=== PATIENT | female | born 1990 | race Caucasian/White ===

== ENCOUNTER 2021-03-30 14:50 | Outpatient (CLI) | payer OTHER, SELFPAY ==
[2021-03-30 15:46] LABS: Basophils Absolute Auto 0.01 K/mm3 (0.00-0.10); Basophils Percent Auto 0.1 % (0.0-1.0); Eosinophils Absolute Auto 0.11 K/mm3 (0.02-0.50); Eosinophils Percent Auto 1.4 % (1.0-6.0); Hemoglobin 11.6 g/dL (12.0-15.0); Immature Granulocyte Absolute 0.02 K/mm3 (0.00-0.00); Immature Granulocyte Percent A 0.3 % (0.0-0.0); Lymphocytes Absolute Auto 1.05 K/mm3 (1.10-4.50); Lymphocytes Percent Auto 13.5 % (18.0-42.0); Mean Corpuscular HGB Conc 34.1 g/dL (32.0-36.0); Mean Corpuscular Volume 90.9 fL (78.0-102.0); Mean Platelet Volume 9.7 fl (9.2-11.8); Monocytes Absolute Auto 0.56 K/mm3 (0.10-0.90); Monocytes Percent Auto 7.2 % (2.0-11.0); Neutrophils Percent Auto 77.5 % (50.0-70.0); Platelet Count Result 228 K/mm3 (150-420); Red Blood Count 3.74 M/mm3 (4.20-5.40); Red Cell Distribution Width 11.7 % (11.6-14.4); White Blood Count 7.8 K/mm3 (4.8-10.8)
[2021-03-30 15:50] LABS: Appearance Urine Clear (Clear); Bilirubin Urine Negative (Negative); Color Urine Light Yellow (Yellow); Glucose Urine UA Negative (Negative); Ketones Urine Negative (Negative); Leukocyte Esterase Ur Trace (Negative); Nitrate Urine Negative (Negative); Protein Urine Negative (Negative); Urobilinogen Urine 0.2 mg/dL (0.2-1.0)
[2021-03-30 16:13] LABS: Add Urine Microscopic? YES; Bacteria Urine Trace /hpf; Blood Urine Trace-lysed (Negative); RBC Urine 0-2 /hpf (0-2); Squamous Epithelial Cell Urine Few /hpf (Few); WBC Urine 0-3 /hpf (0-3)
[2021-03-30 16:40] LABS: Thyroid Stimulating Hormone 1.51 uIU/mL (0.36-3.74)
[2021-03-30 17:55] LABS: HIV 1 P24 AG Negative (Negative); HIV 1/2 AB Negative (Negative)
[2021-04-02 18:37] LABS: Hepatitis B Surface Antigen Nonreactive (Nonreactive)
[2021-04-02 19:22] LABS: Vitamin D 25 Hydroxy 24 ng/mL (30-100)
[2021-04-03 13:36] LABS: RPR Screen Non-Reactive (Non-Reactive)
[2021-04-03 16:20] LABS: Rubella IgG Antibody 2.48 Index
[2021-04-04 05:19] LABS: Hematocrit 36.3 % (35.0-45.0); Hemoglobin 11.5 g/dL (11.7-15.5); MCH 31.3 pg (27.0-33.0); MCV 98.6 fL (80.0-100.0); Red Blood Cell Count 3.68 Mill/uL (3.80-5.10)
[2021-04-10 16:27] LABS: CF Result NEGATIVE (NEGATIVE); Ethnicity CAUCASIAN
== END 2021-03-30 14:51 | disposition home or self-care (01) ==
LOC: CHSLAB 14:53
PROVIDERS: PCP Student in an Organized Health Care Education/Training Program; Visit Provider Student in an Organized Health Care Education/Training Program
DX: Z34.90 Encounter for supervision of normal pregnancy, unspecified, unspecified trimester (principal)
CPT/HCPCS: 36415; 81001; 81220; 81243; 82306; 83021; 84443; 85025; 86592; 86703; 86762; 86787; 86850; 86900; 86901; 87086

== ENCOUNTER 2021-06-08 11:40 | Outpatient (CLI) | payer OTHER, SELFPAY ==
[2021-06-08 13:15] LABS: Basophils Absolute Auto 0.01 K/mm3 (0.00-0.10); Basophils Percent Auto 0.1 % (0.0-1.0); Eosinophils Absolute Auto 0.05 K/mm3 (0.02-0.50); Eosinophils Percent Auto 0.6 % (1.0-6.0); Hematocrit 35.4 % (35.0-49.0); Hemoglobin 11.8 g/dL (12.0-15.0); Immature Granulocyte Absolute 0.03 K/mm3 (0.00-0.00); Immature Granulocyte Percent A 0.4 % (0.0-0.0); Lymphocytes Absolute Auto 1.07 K/mm3 (1.10-4.50); Mean Corpuscular HGB Conc 33.3 g/dL (32.0-36.0); Mean Corpuscular Hemoglobin 31.6 pg (27.0-31.0); Mean Corpuscular Volume 94.7 fL (78.0-102.0); Mean Platelet Volume 8.8 fl (9.2-11.8); Monocytes Absolute Auto 0.62 K/mm3 (0.10-0.90); Monocytes Percent Auto 7.5 % (2.0-11.0); Neutrophils Absolute Auto 6.5 K/mm3 (1.7-7.2); Neutrophils Percent Auto 78.4 % (50.0-70.0); Platelet Count Result 204 K/mm3 (150-420); Red Blood Count 3.74 M/mm3 (4.20-5.40); Red Cell Distribution Width 11.5 % (11.6-14.4); White Blood Count 8.3 K/mm3 (4.8-10.8)
[2021-06-08 13:36] LABS: Glucose 1 Hour PP 50gm Dose 112 mg/dL (70-130)
== END 2021-06-08 11:41 | disposition home or self-care (01) ==
LOC: CHSLAB 11:43
PROVIDERS: Visit Provider Student in an Organized Health Care Education/Training Program
DX: Z34.90 Encounter for supervision of normal pregnancy, unspecified, unspecified trimester (principal)
CPT/HCPCS: 36415; 82947; 85025

== ENCOUNTER 2021-07-18 13:35 | Outpatient (RCR) | payer OTHER, SELFPAY ==
[2021-07-18 15:24] LABS: Add Urine Microscopic? YES; Amorphous Sediment Urine Few; Appearance Urine Cloudy (Clear); Bacteria Urine 2+ /hpf; Bilirubin Urine Negative (Negative); Blood Urine Negative (Negative); Color Urine Yellow (Yellow); Glucose Urine UA Negative (Negative); Ketones Urine Negative (Negative); Leukocyte Esterase Ur 2+ LEU/UL (Negative); Nitrate Urine Negative (Negative); Protein Urine Negative (Negative); Specific Grav Ur 1.006 (1.001-1.035); Squamous Epithelial Cell Urine Occasional /hpf (Few); Urobilinogen Urine Negative mg/dL (<2.0)
[2021-07-18 15:35] VITALS: BP 108/70; PULSE 82
== END 2021-10-02 14:14 | disposition home or self-care (01) ==
LOC: ANHOBOP 13:35
PROVIDERS: Visit Provider Student in an Organized Health Care Education/Training Program
DX: O36.8330 Maternal care for abnormalities of the fetal heart rate or rhythm, third trimester, not applicable or unspecified (principal); Z3A.32 32 weeks gestation of pregnancy
CPT/HCPCS: 59025; 81001

== ENCOUNTER 2021-07-19 11:43 | Outpatient (CLI) | payer OTHER, SELFPAY ==
[2021-07-19 11:58] LABS: Basophils Percent Auto 0.1 % (0.2-1.2); Eosinophils Percent Auto 0.4 % (0-4.4); Hematocrit 33.2 % (37.0-47.0); Hemoglobin 11.1 g/dL (12.0-15.0); Immature Granulocyte Absolute 0.03 K/mm3 (0.00-0.031); Immature Granulocyte Percent A 0.4 % (0-0.5); Lymphocytes Absolute Auto 1.13 K/mm3 (0.9-3.2); Lymphocytes Percent Auto 13.4 % (18.3-44.2); Mean Corpuscular HGB Conc 33.4 g/dl (32-36); Mean Corpuscular Hemoglobin 30.7 pg (26-34); Mean Corpuscular Volume 91.7 fl (80-100); Mean Platelet Volume 9.3 fl (7.4-10.4); Monocytes Absolute Auto 0.6 K/mm3 (0.1-0.6); Monocytes Percent Auto 6.7 % (2.6-8.5); Neutrophils Absolute Auto 6.7 K/mm3 (1.3-6.7); Platelet Count Result 206 k/mm3 (150-375); Red Blood Count 3.62 M/mm3 (4.2-5.4); Red Cell Distribution Width 11.6 % (11.5-14.5); White Blood Count 8.5 K/mm3 (4.5-10.0)
[2021-07-19 12:52] LABS: HIV 1/2 Ab P24 Ag Result Negative (Negative)
[2021-07-19 15:39] LABS: Rapid Plasma Reagin Non-Reactive (NonReactive)
== END 2021-07-19 11:44 | disposition home or self-care (01) ==
LOC: ANHLAB 11:44
PROVIDERS: Visit Provider Student in an Organized Health Care Education/Training Program
DX: Z34.03 Encounter for supervision of normal first pregnancy, third trimester (principal); Z3A.00 Weeks of gestation of pregnancy not specified
CPT/HCPCS: 36415; 85025; 86592; 86703; G0432

== ENCOUNTER 2021-09-02 15:32 | Inpatient (IN) | payer BC, SELFPAY ==
[2021-09-02] VITALS (53 sets, daily range): BP systolic 102–120; BP diastolic 60–83; PULSE 25–110; TEMP 36.5–36.8; O2SAT 83–100; BMI 30.8
--- NOTE | 2021-09-02 16:16 | LDADM ---
This patient, Ya Mahan, was admitted to Labor/Delivery/Recovery 107 on 09/02/21 at 15:32. Plans for labor, pain management and were discussed with patient. Patient/family oriented to hospital policies and general routines including ID bracelet, bed and alarms, visiting hours, pain management, procedures, bathroom and other care routines, personal items, smoking policy, room service/diet and guest tray routines, security routines, and visiting hours. Patient/Family are encouraged to report perceived risks to care and to ask questions if they do not understand what they are told or what they should do. See OBIX for further documentation.
--- NOTE | 2021-09-02 16:22 | PM.IMHP ---
H&P: HPI History of Present Illness Date/Time: 09/02/21 16:22 Patient is a last menstrual period uncertain currently 39 weeks 3 days gestation with HEATHER 09/06/21 who presents to labor and delivery for scheduled elective induction of labor. Patient is dated by an ultrasound on 02/21/2021 at 11 weeks gestation. In general, patient reports feeling well today. Reports occasional contractions. Denies any vaginal bleeding or leakage of fluid. Reports good movement. Chief Complaint: Induction of labor Review of Systems Review of Systems: All systems reviewed & are unremarkable except as noted in HPI and below Constitutional: Constitutional: Reports as per HPI, Reports no additional constitutional complaints, Denies chills, Denies fever(s), Denies headache(s) and Denies night sweats Eyes: Eyes: Reports as per HPI and Reports no additional eye complaints ENT: Reports system reviewed and no additional complaints, except as documented, Reports as per HPI, Reports Normal hearing present and Denies headache(s) Cardiovascular: Cardiovascular: Reports as per HPI, Reports no additional cardiovascular complaints, Denies chest pain and Denies dyspnea Respiratory: Respiratory: Reports as per HPI, Reports no additional respiratory complaints, Denies cough and Denies dyspnea Gastrointestinal: Gastrointestinal: Reports as per HPI, Reports no additional gastrointestinal complaints, Denies abdominal pain, Denies change in bowel habits, Denies change in stool character, Denies nausea and Denies vomiting Genitourinary: Genitourinary: Reports no additional female genitourinary complaints, Reports as per HPI, Denies abnormal vaginal bleeding, Denies genital lesions, Denies hot flashes, Denies dyspareunia, Denies pelvic pain, Denies sexual dysfunction, Denies urinary incontinence, Denies vaginal discharge, Denies vaginal dryness and Denies vaginal odor Musculoskeletal: Musculoskeletal: Reports no additional musculoskeletal complaints and Reports as per HPI Integumentary/Breasts: Skin/Breast: Reports system reviewed and no additional complaints, except as docu, Reports as per HPI, Denies breast pain and Denies nipple discharge Neurologic: Reports system reviewed and no additional complaints, except as documented, Reports as per HPI, Reports Normal hearing present and Denies headache(s) Psychiatric: Psychiatric: Reports no additional psychiatric complaints, Reports as per HPI, Denies anxiety and Denies depression Endocrine: Endocrine: Reports no additional endocrine complaints and Reports as per HPI Hematologic/Lymphatic: Hematologic/Lymphatic: Reports no additional hematologic/lymphatic complaints and Reports as per HPI Allergic/Immunologic: Allergic/Immunologic: Reports no additional allergic/immunologic complaints and Reports as per HPI PMFSH Surgical History Surgical History [place] teeth extracted Family History Family History Grandparent Skin cancer Malignant neoplasm of prostate Alcoholism Parkinson disease Cerebrovascular accident Dementia Sibling Asthma Social History Social History Smoking status: Never smoker Alcohol intake: former Substance use: never Spiritual care concerns: No Meds Home Medications and Allergies Home Medications Medication Instructions Recorded Confirmed Type prenat.vits,medina,fsp-seuo-zqyeu 1 tablet PO DAILY 02/19/21 07/18/21 History diphth,pertus(acell),tetanus 2.5 0.5 ml IM ONCE #0.5 ml 08/11/21 Rx Lf unit-8 mcg-5 Lf/0.5 mL IM susp Allergies Allergy/AdvReac Type Severity Reaction Status Date / Time No Known Allergies Allergy Verified 08/29/21 12:24 Vital Signs Vital Signs - 24 hr 09/02/21 15:54 09/02/21 16:01 09/02/21 16:16 Pulse Rate 81 87 71 Blood Pressure 118/72 116/83 115/75 Exam Const: Gener
--- NOTE | 2021-09-02 16:27 | WPDHPUPDATE1 ---
History and Physical Update Update Date/Time: 09/02/21 16:27 History and Physical has been reviewed, including an updated exam of the patient. There are NO changes in the patient's condition. Risks, benefits, and alternatives have been discussed and questions answered. Patient agrees to proceed with procedure.
[2021-09-02] MEDS: DINOPROSTONE 10 MG VAG INSERT VAGINAL (16:52)
[2021-09-02 16:59] LABS: Basophils Percent Auto 0.1 % (0.2-1.2); Eosinophils Absolute Auto 0.1 K/mm3 (0-0.3); Eosinophils Percent Auto 0.8 % (0-4.4); Immature Granulocyte Absolute 0.04 K/mm3 (0.00-0.031); Immature Granulocyte Percent A 0.5 % (0-0.5); Mean Corpuscular HGB Conc 33.3 g/dl (32-36); Mean Corpuscular Volume 89.9 fl (80-100); Mean Platelet Volume 10.7 fl (7.4-10.4); Monocytes Absolute Auto 0.7 K/mm3 (0.1-0.6); Monocytes Percent Auto 7.9 % (2.6-8.5); Neutrophils Absolute Auto 6.6 K/mm3 (1.3-6.7); Neutrophils Percent Auto 75.7 % (45.5-73.1); Platelet Count Result 184 k/mm3 (150-375); Red Blood Count 3.67 M/mm3 (4.2-5.4); Red Cell Distribution Width 12.5 % (11.5-14.5); White Blood Count 8.7 K/mm3 (4.5-10.0)
[2021-09-02] MEDS: ONDANSETRON INJ 4 MG/2 ML VIAL IV PUSH (23:07)
[2021-09-03] VITALS (130 sets, daily range): BP systolic 89–128; BP diastolic 47–99; PULSE 33–209; RESP 16; TEMP 36.1–37.3; O2SAT 83–100
[2021-09-03] MEDS: fentaNYL CITRATE INJ (*CRX) 100 MCG/2 ML VIAL 50 MCG IV PUSH ×2 (01:57→03:37)
[2021-09-03] MEDS: LACTATED RINGERS 1,000 ML 125 ML IV CONT ×3 (02:07→10:36)
[2021-09-03] MEDS: FAMOTIDINE 20 MG/2 ML VIAL IV PUSH (02:07)
[2021-09-03] MEDS: TERBUTALINE SULFATE 1 MG/ML VIAL 0.25 MG SUB-Q (03:02)
[2021-09-03] MEDS: OXYTOCIN 30 UNITS/NS 500 ML 30 UNITS/500 ML BAG IV CONT (05:38)
--- NOTE | 2021-09-03 06:26 | WPDANESEPPF ---
Anes - Initial Pre Proc Eval Procedure: labor epidural Date/Time: 09/03/21 06:26 Surgeon: Paula Mills MD Pre Op Diagnosis: labor pain Pre Op Diagnosis: Induction of Labor Patient Data Age: 31 Gender: F Height: 1.65 m Weight: 84.09 kg Last Vital Signs Temp 36.6 C 09/03/21 03:16 Pulse 112 H 09/03/21 06:26 BP 107/69 09/03/21 06:26 Pulse Ox 100 09/03/21 06:23 Allergies Allergy/AdvReac Type Severity Reaction Status Date / Time No Known Allergies Allergy Verified 08/29/21 12:24 Home Medications Medication Instructions Recorded Confirmed Type prenat.vits,medina,lta-summ-dzjcx 1 tablet PO DAILY 02/19/21 07/18/21 History diphth,pertus(acell),tetanus 2.5 0.5 ml IM ONCE #0.5 ml 08/11/21 Rx Lf unit-8 mcg-5 Lf/0.5 mL IM susp Laboratory Tests 09/02/21 09/02/21 09/02/21 15:56 15:56 15:56 WBC 8.7 K/mm3 K/mm3 (4.5-10.0) RBC 3.67 M/mm3 L M/mm3 (4.2-5.4) Hgb 11.0 g/dL L g/dL (12.0-15.0) Hct 33.0 % L % (37.0-47.0) MCV 89.9 fl fl (80-100) MCH 30.0 pg pg (26-34) MCHC 33.3 g/dl g/dl (32-36) RDW 12.5 % % (11.5-14.5) Plt Count 184 k/mm3 k/mm3 (150-375) MPV 10.7 fl H fl (7.4-10.4) Immature Gran % (Auto) 0.5 % % (0-0.5) Neut % (Auto) 75.7 % H % (45.5-73.1) Lymph % (Auto) 15.0 % L % (18.3-44.2) [place] % (Auto) 7.9 % % (2.6-8.5) Eos % (Auto) 0.8 % % (0-4.4) Baso % (Auto) 0.1 % L % (0.2-1.2) Lymph # (Auto) 1.30 K/mm3 K/mm3 (0.9-3.2) [place] # (Auto) 0.7 K/mm3 H K/mm3 (0.1-0.6) Eos # (Auto) 0.1 K/mm3 K/mm3 (0-0.3) Baso # (Auto) 0.0 K/mm3 K/mm3 (0.0-0.1) Abs Immat Gran (auto) 0.04 K/mm3 H K/mm3 (0.00-0.031) Absolute Neuts (auto) 6.6 K/mm3 K/mm3 (1.3-6.7) Absolute Nucleated RBC 0.0 K/mm3 K/mm3 (0.0-0.012) Nucleated RBC % 0.0 % % (0.0-0.2) RPR Pending Blood Type A Positive Antibody Screen Negative Patient hx anesthesia problems: none Family hx anesthesia problems: none Results Review: All pre-operative results and documents have been reviewed as part of the pre-operative evaluation. [facility] Surgical History Surgical History [place] teeth extracted Family History Family History Grandparent Skin cancer Malignant neoplasm of prostate Alcoholism Parkinson disease Cerebrovascular accident Dementia Sibling Asthma Social History Social History Smoking status: Never smoker Alcohol intake: former Substance use: never Spiritual care concerns: No Anes - Eval Final PreProcedure Day of Procedure 09/03/21 06:26 Patient weight: obese Lungs: normal air movement ASA classification: II Anesthesia type and monitoring: regional epidural and standard monitoring Results Review: All pre-operative results and documents have been reviewed as part of the pre-operative evaluation. Informed Consent: The patient's anesthetic plan and its attendant risks and benefits were discussed with the patient/family/POA. Questions were solicited and answers provided to the satisfaction of the patient/family/POA.
--- NOTE | 2021-09-03 08:53 | PM.OBPNLAB ---
Pain Control Date/time seen: 09/03/21 08:53 Patient doing well. Comfortable after epidural. Cervidil removed earlier this AM. SVE 3-4/50/-3. AROM performed, clear fluid noted. EFM category 1. [place] shows contractions q3-4 mins. Continue pitocin.
[2021-09-03 13:25] LABS: Rapid Plasma Reagin Non-Reactive (NonReactive)
[2021-09-03] MEDS: OXYTOCIN 30 UNITS/NS 500 ML 30 UNITS/500 ML BAG 125 UNITS IV CONT (16:40)
--- NOTE | 2021-09-03 17:31 | PM.OBPRVD ---
OB - Delivery Note Procedure Delivery date: 09/03/21 Procedure: Patient is now a 31-year-old who presented to labor and delivery on the evening of 09/02/2021 for scheduled elective induction of labor at 39 weeks 3 days gestation. Patient was admitted to labor and delivery where induction of labor was started with Cervidil. Initial cervical exam was closed. Cervidil remained in place for approximately 12 hours. Upon Cervidil removal, cervical exam was noted to be approximately 3 cm dilated. Patient was started on Pitocin. Artificial rupture membranes was performed at 0809. Clear amniotic fluid was noted. Pitocin was continuously titrated throughout the rest of the morning and afternoon. Patient became uncomfortable and requested an epidural for pain management which was placed without difficulty. During the afternoon, decelerations were noted on monitoring. An IUPC was placed for enhanced monitoring. Intermittent periods of variable and late decelerations were noted. Pitocin was stopped and restarted a few times throughout the afternoon. Patient, however, continued to make progressive cervical change. She was found to be fully dilated at 3:17 p.m. Patient was encouraged to push and found to be pushing well. Late decelerations were noted on EFM and decision was made to expedite delivery with a Kiwi vacuum. Patient was prepped and draped for delivery. Anesthesia and nursing staff were notified. At 4:07 p.m., Kiwi vacuum was applied to head and with subsequent contraction, the pressure of vacuum was increased to green range and simultaneously with maternal pushing efforts, the head was guided through vagina and delivered. Kiwi vacuum was released. Occiput restituted to maternal left side. A nuchal cord x1 was noted and reduced. With subsequent push, the 's neck, shoulders, and rest of body delivered without difficulty. was mildly floppy. Nose and mouth were suctioned with bulb suction. Infant was placed on maternal abdomen where care was assumed by awaiting nursing staff. Cord was clamped and cut. A segment of cord was collected for cord gases. Cord blood was collected. The placenta was delivered spontaneous intact. Moderate bleeding was noted. On inspection, a second-degree perineal laceration as well as a left vaginal wall laceration was noted. Tissue was also noted to be edematous. Additional superficial abrasions were also noted and were oozing. Lacerations were repaired with 2-0 Vicryl in usual fashion. Due to the edematous nature of tissue and the superficial abrasions, minimal oozing persisted. Pressure was applied and bleeding seemed to subside. Decision was made to place vaginal packing. A Carpenter catheter was inserted. And gel coated vaginal packing was placed. Estimated blood loss for entire delivery is 450 cc, mostly due to lacerations. The infant was a live-born male infant, 7 and 9, weighing 6 lb 12 oz both mother and baby doing well at end of delivery. events: Labor Induction Induction method: per cervidil protocol Delivery augmentation: rupture of membranes and pitocin Delivery monitor: external FHT, external uterine and internal uterine Route of delivery: vacuum extraction Indication for instrumentation: nonreassuring FHR tracing Laceration Description: Perineal - 2nd Degree and Vaginal - 1st Degree (left vaginal wall) Delivery repair: vicryl (2-0 vicryl) Specimen: No Quantitative Blood Loss (ml): 450 Anesthesia type: Epidural Disposition: floor Complications: No immediate complications, however, vaginal packing and carpenter catheter remained in place at end of delivery Baby Date of : 09/03/21 Time of : 16:07 Weeks of gestation at delivery: 39 (39.4) Infant gender: Male Weight (pounds): 6 Weight (ounces): 12 presentation: vertex position: Left Occiput Anterior Placenta delivery description: Spontaneous cord vessel description: 3 Vessels and Nuchal Co
[2021-09-03] MEDS: IBUPROFEN 600 MG TABLET PO (18:45)
--- NOTE | 2021-09-03 19:25 | OBPPTRN ---
Patient transferred to post room #285 via w/c. Support person, Alexander, present. Oriented to unit, room, information board, rooming in, admission packet and security measures. Patient verbalizes understanding.
[2021-09-04 00:30] VITALS: BP 109/65; PULSE 88; RESP 16; TEMP 36.8; O2SAT 99
[2021-09-04] MEDS: HYDROcodone/acetaminophen (*CRX) 10-325 MG TABLET 1 TAB PO ×2 (01:27→16:45)
--- NOTE | 2021-09-04 02:00 | PC.NURSE ---
Nipple shield provided to mother due to shallow/flat nipples after delivery and presented to the floor with shield at bedside. Instructions given on application and cleaning of shield. Discussed nipple shield precautions and possible complications. Patient able to return demonstration on proper application of shield. Discussed the need to initiate pumping if infant continues to nurse with the shield. Patient verbalizes understanding. Breast pump provided due to use of nipple shield with feedings. Instructions given on breast pump care and usage, pumping schedule, nipple care, and collection and storage of breast milk. Encouraged [id number], breast massage and manual expression to stimulate supply. Pumping log provided and reviewed. Assessed patient for correct flange size, placement and draw. Patient verbalizes and demonstrates understanding of instructions.
[2021-09-04] MEDS: LANOLIN (LANSINOH) 7.5 GM CREAM 1 APPLIC TOPICAL (02:47)
[2021-09-04 05:00] VITALS: BP 104/63; PULSE 88; RESP 16; TEMP 37.1; O2SAT 99
[2021-09-04 05:59] LABS: Hematocrit 25.7 % (37.0-47.0); Hemoglobin 8.4 g/dL (12.0-15.0)
[2021-09-04] MEDS: DOCUSATE SODIUM 100 MG CAPSULE PO ×2 (07:06→16:47)
[2021-09-04] MEDS: IBUPROFEN 600 MG TABLET PO ×2 (07:06→13:35)
[2021-09-04] MEDS: POLYSACCHARIDE IRON COMPLEX 150 MG CAPSULE PO ×2 (07:06→16:47)
[2021-09-04] MEDS: MULTIVIT/MIN/PREN/FOL AC/IRON TABLET 1 TAB PO (07:07)
--- NOTE | 2021-09-04 07:57 | PM.OBPNVD ---
OB - PN: Subj Subjective Date/time seen: 09/04/21 07:57 Patient comments: no complaints, pain well controlled and other (Lochia similar to heavy menses. No CP, SOB, dizziness) [place] baby status: doing well OB - PN: Obj Data Labs CBC & Chem 7: 09/04/21 05:20 Labs: Laboratory Results - last 24 hr 09/02/21 09/04/21 15:56 05:20 Hgb 8.4 L Hct 25.7 L RPR Non-reactive OB - PN A/P Plan day: 1 (s/p vaginal delivery, doing well) Plan: routine care Comments: No signs / symptoms of anemia Time Spent With Patient Time: Total time spent is greater than 50% in coordination of care (as documented) at patient's floor/unit and/or counseling patient: Time with patient: less than 15 minutes Exam Const: General: no acute distress GI: Inspection: other (Fundus firm and nontender at umbilicus) GI Palp: Yes Soft to palpation and No Tenderness to palpation present (GI) Extrem: General: no edema
[2021-09-04 08:00] VITALS: BP 115/73; PULSE 78; RESP 18; TEMP 36.4
--- NOTE | 2021-09-04 09:00 | PC.NURSE ---
Mother called out for assist with feeding. Mother reports infant is sleepy and makes some eager attempts to latch using the nipple shield. Mother will attempt each feeding, followed with supplementation of EBM/formula and then pump. is able to freely thrust tongue past gum ridge and flange both lips. Skin is intact on both nipples, no redness and bruising noted. Areolas are firm and edematous. Nipple care reviewed of lanolin after feedings, warm compresses as needed. Discussed nipple shield use and how shield may assist with latch. Reviewed nipple shield precautions and possible complications. Instructions given on application and cleaning of shield. Patient able to return demonstration on proper application of shield. Discussed the need for regular pumping if continues to nurse with the shield. Patient verbalizes understanding. Reviewed infant feeding cues, frequencies, duration of feedings, feeding elimination flow sheet, and signs of adequate intake. Demonstrated stimulation techniques to wake for feeding. Assisted with infant to breast without nipple shield. Reviewed positioning/alignment in cross cradle, holding breast in ?U? hold and guided asymmetrical latch on. Reviewed rational for each. With shield in place, infant was able to latch and draw nipple in with slight tenderness to mother. Areola remains firm and not drawing into shield. nursed eagerly with steady draws and occasional swallowing noted for bursts followed with long pausing. Reviewed signs of a correct latch, effective nursing and suck swallow ratio. Infant was able to maintain latch with slight discomfort to mother. Suggested mother stimulate while feeding to increase stimulate, increase intake and to assist with maintaining deep latch. Demonstrated how to adjust latch more deeply while feeding if needed. Discussed the difference of effective vs ineffective feeding. Reviewed is latching with good burst of suckling, he is not feeding consistently with adequate milk transfer at this time and continues to need supplement after . Feeding options discussed, Feeding Plan is for mother to put to breast each feeding for up to 15 minutes, then pace feed supplement 20 mls and pump for 10-15 minutes. Parents are comfortable with supplementation and pumping. If infant begins to nurse effectively with long draws and frequent swallowing noted, infant may decrease supplementation and discontinue pumping. Suggested mother have LC pole peeling machine operator helper observe feeding before discontinuing supplementation. Discussed increasing supplementation as infant requires to satisfactions. Reviewed paced feeding and suggested to stop when infant is satisfied, as long as infant is having required output. With increased supplementation infant may not want to feed for 4 hours. Mother will continue to pump on feeding schedule and will increase session to 20 minutes if pumping every 4 hours. Instructed mother to call out for RN assistance if she is unable to latch for feeding or she has discomfort with nursing. Instructed feeding should be initiated three hours from start of last feeding or if feeding cues are noted before. Mother voiced understanding of information shared.
--- NOTE | 2021-09-04 09:40 | PC.NURSE ---
Reviewed breast pump care and usage, pumping schedule, nipple care, and collection and storage of breast milk. Encouraged [id number], breast massage and manual expression to stimulate supply. Assessed patient for correct flange size, placement and draw. Patient verbalizes and demonstrates understanding of instructions. Discussed colostrum vs milk supply and mother may not see more than a few drops the first few days, milk should transition in by day 3 and she may see more volume pumped per session.
--- NOTE | 2021-09-04 10:03 | WPDANLDPN2 ---
Anes-Prog Note L&D Date/Time: 09/04/21 10:03 Comfortable throughout: labor and delivery Neuraxial method: epidural Epidural/Spinal procedure site: clean & non-tender Neuro status: Neuro function grossly intact. Cardiovascular status: normal Respiratory status: normal Airway patency: baseline Mental status: baseline Post-Op hydration status: normal Vital Signs: Last Vital Signs Temp 37.1 C 09/04/21 05:00 Pulse 88 09/04/21 05:00 Resp 16 09/04/21 05:00 BP 104/63 09/04/21 05:00 Pulse Ox 99 09/04/21 05:00 Pain score (VAS): 0 I/O: Intake & Output 09/03/21 09/04/21 09/04/21 23:59 07:59 15:59 Intake Total 2200 Output Total 1457 Balance 743 Post-procedural complaints: none Patient feedback: Patient satisfied with anesthetic care.
[2021-09-04 11:28] VITALS: BP 106/63; PULSE 87; RESP 18; TEMP 37.7; O2SAT 99
[2021-09-04 16:00] VITALS: BP 122/70; PULSE 82; RESP 18; TEMP 36.8
[2021-09-04] MEDS: WITCH HAZEL 40 PADS 1 PAD TOPICAL (16:45)
[2021-09-04] MEDS: BENZOCAINE 20% AER SPR (*SP) 56 GM CAN 1 SPRAY TOPICAL (16:45)
[2021-09-04 20:06] VITALS: BP 102/53; PULSE 80; RESP 18; TEMP 36.3; O2SAT 99
[2021-09-05] MEDS: IBUPROFEN 600 MG TABLET PO (05:46)
[2021-09-05] MEDS: DOCUSATE SODIUM 100 MG CAPSULE PO (07:30)
[2021-09-05] MEDS: ACETAMINOPHEN 325 MG TABLET 650 MG PO (07:31)
[2021-09-05] MEDS: POLYSACCHARIDE IRON COMPLEX 150 MG CAPSULE PO (07:31)
[2021-09-05] MEDS: MULTIVIT/MIN/PREN/FOL AC/IRON TABLET 1 TAB PO (07:31)
[2021-09-05 07:50] VITALS: BP 95/64; PULSE 75; RESP 16; TEMP 36.1; O2SAT 99
--- NOTE | 2021-09-05 12:20 | PM.OBPNVD ---
OB - PN: Subj Subjective Date/time seen: 09/05/21 12:20 Patient doing well this morning. Denies any significant pain. Well controlled medication. Minimal lochia. Ambulating without difficulty. Voiding without difficulty. OB - PN: Obj Data Labs CBC & Chem 7: 09/04/21 05:20 OB - PN A/P Assessment and Plan (1) Normal spontaneous vaginal delivery: Code(s): O80 - Encounter for full-term uncomplicated delivery Status: Acute Assessment and Plan: PPD#2 doing well dc home in stable condition emergency precautions reviewed f/u in office in 4-6 weeks for visit Time Spent With Patient Time: Total time spent is greater than 50% in coordination of care (as documented) at patient's floor/unit and/or counseling patient: Exam Const: General: cooperative, healthy appearing, comfortable and no acute distress GI: Inspection: non-distended GI Palp: Yes Soft to palpation and No Tenderness to palpation present (GI) Other: fundus firm below umbilicus Extrem: Right lower extremity: edema Details: 1+ Left lower extremity: edema Details: 1+ Other: no calf tenderness
--- NOTE | 2021-09-05 12:22 | PM.OBDSVD ---
DS: Admitting Diagnosis Discharge Date 09/05/21 Admitting Diagnosis Induction of labor OB - DS: Summary OB Procedures : None OB Procedures Intrapartum: Spontaneous Vag Delivery OB Procedures: : None Time Spent with Patient Time attestation: Total time spent providing and/or coordinating discharge services: Discharge Plan Discharge Attending physician on discharge: Paula Mills Discharging Clinician: Paula Mills Anticipated Discharge Date/Time: 09/05/21 12:23 Patient Disposition: Home, Self-Care Activity: as tolerated and pelvic rest Diet: regular Discharge Instructions: Call office ([phone]) to schedule a visit in 4-6 weeks. You may take Ibuprofen 600mg every 6 hours as needed for pain. Pain medication may make you constipated. It may be helpful to take an ativ-dxc-qyxngzc stool softener, such as Colace and/or Senokot, along with the pain medication to help lessen constipation. Call office or go to ED for pain not controlled with medication, headache, chest pain, shortness of breath, fever, chills, persistent nausea or vomiting, severe abdominal pain, heavy vaginal bleeding >2 pads/hour, foul vaginal discharge or odor, or problems with your breasts. Patient Instructions: Antibiotic Form Stand Alone Forms: General Discharge Information Follow-up/Referrals: Paula Mills MD [Physician] - Discharge Medications: Continued prenat.vits,medina,iia-ifwp-nwvsy Tablet 1 tablet PO DAILY RF: 0 Discontinued Boostrix Tdap 2.5-8-5 Lf-mcg-Lf/0.5mL suspension 0.5 ml IM ONCE Qty: 0.5 RF: 0 Date of admission: 09/02/21 15:32 Primary Care Provider: PHYSICIAN,SUPERVISOR TILE AND MOTTLE Admitting Provider: Paula Mills Attending physician on admission: Paula Mills Condition: Stable
--- NOTE | 2021-09-05 13:44 | PC.NURSE ---
1215 Breast feeding note; mother was finishing a pumping session as nurse entered the room; mother reports she is continuing to attempt breast feeding, then bottle feeding and pumping at each feeding, stating will just not latch to feed. Parents report mother had about 5cc breast milk at last pumping; they were instructed to now mix the breast milk with enough formula to know that baby will take all of that amount per bottle, then continue with formula feeding to amount infant wants, gradually increasing. Reviewed q3-4h feedings with baby taking formula, and q2-3 hour and on demand feedings as baby is taking more and more exclusive breast milk. Reviewed feeding log for monitoring wet/dirty diapers per day of age, and breast feeding pages in Mother Baby Guide flagged for pt's home reference, including LC contact information. Mother encouraged to call LC and make an appointment later next week if baby still not latching. Parents are planning on returning home to [place]; encouraged parents to seek out an RN LC where they now live for continued breast feeding support. Parents have a good breast feeding plan, and implementing it independently. They had no other questions for nurse at this time.
[2021-09-08 10:59] VITALS: BP 119/74; PULSE 65; RESP 16; TEMP 37.2; O2SAT 100
== END 2021-09-05 13:34 | disposition home or self-care (01) | DRG 807 ==
LOC: ANHLDR 15:35 → ANHOB2 09-03 19:41
PROVIDERS: Admitting Provider Student in an Organized Health Care Education/Training Program; Visit Provider Student in an Organized Health Care Education/Training Program
DX: O76 Abnormality in fetal heart rate and rhythm complicating labor and delivery (principal); Z37.0 Single live birth; O69.81X0 Labor and delivery complicated by cord around neck, without compression, not applicable or unspecified; O70.1 Second degree perineal laceration during delivery; O12.04 Gestational edema, complicating childbirth; Z3A.39 39 weeks gestation of pregnancy; O70.0 First degree perineal laceration during delivery
CPT/HCPCS: 36415; 85014; 85018; 85025; 86592; 86850; 86900; 86901; A9270; J2405; J2590; J2795; J3010; J3105; J7120

== ENCOUNTER 2023-01-31 11:40 | Emergency (ER) | payer BC, SELFPAY ==
--- NOTE | 2023-01-31 11:44 | ED.FEMALEGU ---
HPI - Female Genitourinary General Chief complaint: Urogenital-Female Stated complaint: uti Time Seen by Provider: 01/31/23 11:45 Source: patient Mode of arrival: ambulatory Limitations: no limitations History of Present Illness HPI Narrative: Ya is a 32-year-old female patient presenting to the clinic today with complaints of a possible urinary tract infection x 1 day. She reports no fever or chills. No back pain/abdomen pain. Is having urinary frequency, urgency, and some discomfort with blood in her urine. Denies any use of any azo. Patient has been recently traveling. Denies any vaginal discharge or odor. Related Data Allergies Allergy/AdvReac Type Severity Reaction Status Date / Time No Known Allergies Allergy Verified 01/31/23 11:42 Review of Systems Review of Systems: Pertinent positives per HPI. Patient denies any fever, chills, rash, headache, visual changes, dizziness, cough, runny nose, sore throat, shortness of breath, chest pain, palpitations, nausea, vomiting, diarrhea, constipation, abdominal pain. PMFSH Past Medical History Medical History Normal spontaneous vaginal delivery Surgical History Surgical History [place] teeth extracted Family History Family History Grandparent Skin cancer Malignant neoplasm of prostate Alcoholism Parkinson disease Cerebrovascular accident Dementia Sibling Asthma Social History Social History Smoking status: Never smoker Alcohol intake: former Substance use: never Spiritual care concerns: No Comments At the time of my signature, I reviewed and agree with the nursing past medical, surgical, social, and family history. There is no relevant family history pertinent to the patient complaint. Exam Narrative: General: Well-developed, well nourished, in no apparent distress. Head: Normocephalic, atraumatic. Cardio: Regular rate and rhythm, s1 and s2 normal, no murmur appreciated. Resp: Clear to auscultation bilaterally, no rhonchi, rales, wheezing or rubs. Abdomen: Soft, pliable, bowel sounds present in all quadrants, mildly tender to palpation over the suprapubic bladder, no organomegly, no CVAT tenderness. Course Course Emergency Course: Portions of this record may have been created with voice recognition software. Level of Care: Express Care Visit Vital Signs Vital signs: Vital signs reviewed MDM - Female Genitourinary MDM Narrative Medical decision making narrative: At the time of visit patient is resting comfortably on the exam table. Urinalysis dip was obtained and was likely skewed due to the blood of patient's urine. Will send urine for culture. Will place the patient on a 7 day course of Bactrim DS and Pyridium. Supportive measures were discussed with the patient she voiced understanding of discharge instructions and agrees to treatment plan Differential Diagnosis Differential diagnosis: Likely urinary tract infection and cystitis Discharge Plan Discharge Clinical Impression: Urinary tract infection Qualifiers: Urinary tract infection type: acute cystitis Hematuria presence: with hematuria Qualified Code(s): N30.01 - Acute cystitis with hematuria Patient Disposition: Home, Self-Care Condition: Stable Instructions: Antibiotic Form, Urinary Tract Infection in Women (ED) Additional Instructions: UA positive for a bladder infection-we will send urine for culture Start Bactrim DS 1 tab by mouth every 12 hours x7 days Take Pyridium 200 mg every 8 hours x6 doses Increase fluids and stay well hydrated Wipe front to back. May use wet wipes. Avoid tub baths If sexually active- pee before and after intercourse. Wear cotton panties Avoid tight clothing
[2023-01-31 11:47] VITALS: BP 107/72; PULSE 89; RESP 16; TEMP 36.4; O2SAT 100
[2023-01-31 11:53] VITALS: BP 107/72; PULSE 89; RESP 16; TEMP 36.4; O2SAT 100
== END 2023-01-31 12:03 | disposition home or self-care (01) ==
PROVIDERS: Emergency Provider Nurse Practitioner Family
DX: N30.01 Acute cystitis with hematuria (principal)
CPT/HCPCS: 81003; 87077; 87086; 87186; 99213; G0463